=== PATIENT | female | born 1965 | race Caucasian/White ===

== ENCOUNTER → 2023-04-01 | Outpatient (CLI) | payer SELFPAY ==
[2023-04-01 10:33] LABS: BASOPHILS ABSOLUTE AUTO 0.05 K/mm3 (0.00-0.23); BASOPHILS PERCENT AUTO 1 % (0-2); EOSINOPHILS ABSOLUTE AUTO 0.07 K/mm3 (0.00-0.68); EOSINOPHILS PERCENT AUTO 1 % (0-6); Hematocrit 43.7 % (33.0-51.0); Hemoglobin 15.4 g/dL (11.5-16.0); IMMATURE GRAN ABSOLUTE AUTO 0.04 K/mm3 (0.00-0.10); IMMATURE GRAN PERCENT AUTO 1 % (0-1); LYMPHOCYTES ABSOLUTE AUTO 2.23 K/mm3 (0.84-5.20); LYMPHOCYTES PERCENT AUTO 32 % (21-46); MONOCYTES ABSOLUTE AUTO 0.46 K/mm3 (0.16-1.47); MONOCYTES PERCENT AUTO 7 % (4-13); Mean Corpuscular HGB 33.7 pg (26.0-34.0); Mean Corpuscular HGB Conc 35.2 g/dL (31.5-36.5); Mean Corpuscular Volume 96 fL (80-100); Mean Platelet Volume 9.9 fL (9.1-12.4); NEUTROPHILS ABSOLUTE AUTO 4.14 K/mm3 (1.96-9.15); NEUTROPHILS PERCENT AUTO 59 % (41-73); Platelet Count 270 K/mm3 (150-400); RDW Coefficient Variation 13.2 % (11.7-14.2); RDW Standard Deviation 46.8 fL (35.1-46.3); Red Blood Cell Count 4.57 M/mm3 (3.80-5.20); White Blood Cell Count 6.99 K/mm3 (4.00-11.30)
[2023-04-01 11:58] LABS: Thyroid Stimulating Hormone 1.94 uIU/mL (0.360-4.800)
[2023-04-01 11:59] LABS: Albumin, Blood 3.4 g/dL (3.4-5.0); Albumin/Globulin Ratio 0.8 (0.8-1.8); Bilirubin, Total 0.2 mg/dL (0.1-1.0); Bun/Creatinine Ratio 14.9 (12.0-20.0); Calcium, Blood 8.9 mg/dL (8.5-10.1); Creatinine, Blood 0.81 mg/dL (0.40-1.00); Globulin, Blood 4.2 g/dL (2.2-4.0); Potassium, Blood 4.2 mmol/L (3.5-5.5); Total Protein, Blood 7.6 g/dL (6.4-8.2)
== END | disposition home or self-care (01) ==
LOC: LAB 08:40 → LAB SHORT 08:40
PROVIDERS: Physician Assistant
DX: R10.9 Unspecified abdominal pain (principal); R53.83 Other fatigue
CPT/HCPCS: 80053; 83036; 84443; 85025

== ENCOUNTER 2023-10-02 14:17 | Inpatient (IN) | payer OTHER ==
[~2023-10-02] VITALS: Ht 170.2 cm; Wt 118.4 kg
[2023-10-02 14:41] LABS: BASOPHILS ABSOLUTE AUTO 0.04 K/mm3 (0.00-0.23); BASOPHILS PERCENT AUTO 0 % (0-2); EOSINOPHILS PERCENT AUTO 0 % (0-6); Hematocrit 45.7 % (33.0-51.0); IMMATURE GRAN ABSOLUTE AUTO 0.06 K/mm3 (0.00-0.10); IMMATURE GRAN PERCENT AUTO 0 % (0-1); LYMPHOCYTES ABSOLUTE AUTO 2.79 K/mm3 (0.84-5.20); LYMPHOCYTES PERCENT AUTO 18 % (21-46); MONOCYTES ABSOLUTE AUTO 0.92 K/mm3 (0.16-1.47); MONOCYTES PERCENT AUTO 6 % (4-13); Mean Corpuscular HGB 33.1 pg (26.0-34.0); Mean Corpuscular Volume 95 fL (80-100); Mean Platelet Volume 9.5 fL (9.1-12.4); NEUTROPHILS ABSOLUTE AUTO 11.33 K/mm3 (1.96-9.15); NEUTROPHILS PERCENT AUTO 75 % (41-73); Platelet Count 291 K/mm3 (150-400); RDW Coefficient Variation 12.8 % (11.7-14.2); RDW Standard Deviation 44.5 fL (35.1-46.3); Red Blood Cell Count 4.83 M/mm3 (3.80-5.20); White Blood Cell Count 15.14 K/mm3 (4.00-11.30)
[2023-10-02] MEDS ORDERED: OMEP20ER PO (14:50)
[2023-10-02] MEDS ORDERED: LOSARTAN-HCTZ1 EACH PO (14:50)
[2023-10-02 15:05] LABS: Albumin/Globulin Ratio 0.6 (0.8-1.8); Bilirubin, Total 0.8 mg/dL (0.1-1.0); Bun/Creatinine Ratio 14.1 (12.0-20.0); Creatinine, Blood 0.78 mg/dL (0.40-1.00); Globulin, Blood 5.3 g/dL (2.2-4.0); Potassium, Blood 4.1 mmol/L (3.5-5.5); Total Protein, Blood 8.3 g/dL (6.4-8.2)
[2023-10-02 15:12] LABS: Influenza A, PCR NEGATIVE (NEGATIVE); Influenza B, PCR NEGATIVE (NEGATIVE); Resp Syncytial Virus, PCR NEGATIVE (NEGATIVE); SARS-Cov-2 (COVID-19) PCR, MMC NEGATIVE (NEGATIVE)
[2023-10-02 16:56] LABS: Source, Urine Clean Catch
[2023-10-02 17:07] LABS: Bilirubin, Urine Neg (Neg); Blood, Urine 3+ (Neg); Color, Urine Yellow (P-Yellow); Glucose Qualitative, Urine Neg (Neg); Ketones, Urine Neg (Neg); Leukocyte Esterase, Urine Neg (Neg); Nitrite, Urine Neg (Neg); Protein, Urine 2+ (Neg); Urobilinogen, Urine 1+ (Normal)
[2023-10-02 17:22] LABS: Appearance, Urine Hazy (Clear)
[2023-10-02 17:23] LABS: Bacteria Few /hpf; Squamous Epithelial Cells Few /hpf (Few); Transitional Epithelial Cells Rare /hpf (0-Rare); White Blood Cells, Urine 0-2 /hpf (0-5)
[2023-10-02 20:35] VITALS: BP 114/68
--- NOTE | 2023-10-03 02:28 | NUR ---
LATE ENTRY FOR 10/02/23 AT 2012. PT ARRIVED FROM THE ER TO ROOM 215 AT 2013. PT ARRIVED VIA BED AND TRANSFERED TO THE ROOM BED VIA AMBULATION. VITALS SIGNS STABLE. PT REPORTS PAIN 4/10 IN ABDOMEN. PT ORIENTED TO ROOM AND CALL LIGHT IS IN REACH.
--- NOTE | 2023-10-03 02:46 | NUR ---
LATE ENTRY FOR 10/03/23 AT 0035. T/C PLACED TO HOSPITALIST TO CLARIFY AND OBTAIN ORDERS. NEW ORDERS RECEIVED FOR CIWA ASSESSMENT, NS 75, FENTANYL, ZOFRAN. TELEMETRY ORDER VERIFIED TO KEEP AND GENERAL SURGERY CONSULT MENTIONED IN ER H&P NEEDS TO BE CLARIFIED DURING THE DAY NO ORDER WAS PLACED AT THAT TIME.
[2023-10-03 04:45] VITALS: BP 119/72
--- NOTE | 2023-10-03 07:08 | NUR ---
SHIFT SUMMARY NOC. PT A/O X4. PT REPORTS TOLERABLE LOWER ABDOMINAL PAIN. PT HAS HAD INCONTINENT FECAL EPISODES OF GREEN LIQUID STOOL. PT IS NPO STATUS AND NS IS RUNNING ORDERED. PT DENIES N/V. PT RESTED WITH EYES CLOSED AND CALL LIGHT IN REACH.
[2023-10-03 08:27] VITALS: BP 110/66
[2023-10-03 09:49] LABS: BASOPHILS ABSOLUTE AUTO 0.03 K/mm3 (0.00-0.23); BASOPHILS PERCENT AUTO 0 % (0-2); EOSINOPHILS PERCENT AUTO 0 % (0-6); Hematocrit 38.7 % (33.0-51.0); Hemoglobin 13.2 g/dL (11.5-16.0); IMMATURE GRAN ABSOLUTE AUTO 0.05 K/mm3 (0.00-0.10); IMMATURE GRAN PERCENT AUTO 0 % (0-1); LYMPHOCYTES ABSOLUTE AUTO 2.11 K/mm3 (0.84-5.20); LYMPHOCYTES PERCENT AUTO 15 % (21-46); MONOCYTES ABSOLUTE AUTO 0.63 K/mm3 (0.16-1.47); MONOCYTES PERCENT AUTO 5 % (4-13); Mean Corpuscular HGB 33.2 pg (26.0-34.0); Mean Corpuscular HGB Conc 34.1 g/dL (31.5-36.5); Mean Corpuscular Volume 98 fL (80-100); Mean Platelet Volume 9.6 fL (9.1-12.4); NEUTROPHILS ABSOLUTE AUTO 10.97 K/mm3 (1.96-9.15); NEUTROPHILS PERCENT AUTO 80 % (41-73); Platelet Count 231 K/mm3 (150-400); RDW Coefficient Variation 12.9 % (11.7-14.2); Red Blood Cell Count 3.97 M/mm3 (3.80-5.20); White Blood Cell Count 13.79 K/mm3 (4.00-11.30)
[2023-10-03 10:02] LABS: Bun/Creatinine Ratio 14.5 (12.0-20.0); Calcium, Blood 8.3 mg/dL (8.5-10.1); Creatinine, Blood 0.83 mg/dL (0.40-1.00); Potassium, Blood 3.1 mmol/L (3.5-5.5)
--- NOTE | 2023-10-03 16:07 | NUR ---
SHIFT SUMMARY PT A&OX4, VSS/RA, SYDNEE PO FLD, AMB INDEPENDENTLY TO BRP, VOIDING/BMs, DENIES PAIN/NEED FOR MED, ABD MODERATELY DISTENDED/SOFT, CIWAs NEG, TELE DC'D: NSR 80s, IV RHAND 20G, NS @ 75 MLS/HR, ABX Q6H. WILL REPORT TO NEXT RN.
[2023-10-03 16:51] VITALS: BP 108/62
[2023-10-03 18:59] VITALS: BP 124/83
[2023-10-04 02:16] VITALS: BP 109/65
[2023-10-04 04:07] LABS: BASOPHILS ABSOLUTE AUTO 0.02 K/mm3 (0.00-0.23); BASOPHILS PERCENT AUTO 0 % (0-2); EOSINOPHILS ABSOLUTE AUTO 0.02 K/mm3 (0.00-0.68); EOSINOPHILS PERCENT AUTO 0 % (0-6); Hematocrit 36.4 % (33.0-51.0); Hemoglobin 12.5 g/dL (11.5-16.0); IMMATURE GRAN ABSOLUTE AUTO 0.05 K/mm3 (0.00-0.10); IMMATURE GRAN PERCENT AUTO 1 % (0-1); LYMPHOCYTES ABSOLUTE AUTO 1.53 K/mm3 (0.84-5.20); LYMPHOCYTES PERCENT AUTO 15 % (21-46); MONOCYTES ABSOLUTE AUTO 0.62 K/mm3 (0.16-1.47); MONOCYTES PERCENT AUTO 6 % (4-13); Mean Corpuscular HGB 33.6 pg (26.0-34.0); Mean Corpuscular HGB Conc 34.3 g/dL (31.5-36.5); Mean Corpuscular Volume 98 fL (80-100); Mean Platelet Volume 9.7 fL (9.1-12.4); NEUTROPHILS ABSOLUTE AUTO 8.12 K/mm3 (1.96-9.15); NEUTROPHILS PERCENT AUTO 78 % (41-73); Platelet Count 213 K/mm3 (150-400); RDW Coefficient Variation 12.8 % (11.7-14.2); RDW Standard Deviation 45.9 fL (35.1-46.3); Red Blood Cell Count 3.72 M/mm3 (3.80-5.20); White Blood Cell Count 10.36 K/mm3 (4.00-11.30)
[2023-10-04 04:30] LABS: Bun/Creatinine Ratio 14.5 (12.0-20.0); Calcium, Blood 8.3 mg/dL (8.5-10.1); Creatinine, Blood 0.69 mg/dL (0.40-1.00); Potassium, Blood 3.1 mmol/L (3.5-5.5)
--- NOTE | 2023-10-04 06:43 | NUR ---
SHIFT SUMMARY NOC. PT A/O X4. PT TOLERATING PO FLUIDS AND REPORTS DECREASED APPETITE. DENIES N/V AND CONTINUES TO HAVE LOOSE BOWEL MOVEMENTS. PT MEDICATED FOR ABDOMINAL PAIN X1 WITH RELIEF OF SX. PT'S RIGHT HAND IV REMOVED AND SAIL CUTTER PLACED NEW IV IN LEFT HAND. PT RESTED WITH EYES CLOSED AND CALL LIGHT IN REACH.
[2023-10-04 07:11] VITALS: BP 115/69
[2023-10-04] MEDS ORDERED: OMEP20ER PO (12:27)
[2023-10-04] MEDS ORDERED: AMOCLA875 PO (12:29)
--- NOTE | 2023-10-04 13:13 | NUR ---
DISCHARGE SUMMARY PT A&OX4, VSS/RA, SYDNEE PO, VOIDING/BMs, AMB INDEPENDENTLY, PAIN MANAGED, IV DC'D. DC INS PROVIDED. PT REP UNDERSTANDING THOSE INSTRUCTIONS. LEFT FLOOR VIA WC WITH ALL PERSONAL POSSESSIONS INCLUDING DC PACKET AND WORK NOTE.
== END 2023-10-04 13:25 | disposition home or self-care (01) | DRG 872 ==
LOC: ER 14:17 → SURS 14:18
PROVIDERS: Student in an Organized Health Care Education/Training Program; ADMIT Internal Medicine
DX: A41.9 Sepsis, unspecified organism (principal); K57.20 Diverticulitis of large intestine with perforation and abscess without bleeding; E87.1 Hypo-osmolality and hyponatremia; Z68.41 Body mass index [BMI] 40.0-44.9, adult; F10.90 Alcohol use, unspecified, uncomplicated; F17.210 Nicotine dependence, cigarettes, uncomplicated; K21.9 Gastro-esophageal reflux disease without esophagitis; Z71.6 Tobacco abuse counseling; E66.9 Obesity, unspecified; I10 Essential (primary) hypertension; K76.0 Fatty (change of) liver, not elsewhere classified; R73.03 Prediabetes; Z11.52 Encounter for screening for COVID-19; Z86.19 Personal history of other infectious and parasitic diseases; Z79.899 Other long term (current) drug therapy
CPT/HCPCS: 0241U; 36415; 71046; 74177; 80048; 80053; 81001; 81025; 83605; 83690; 85025; 87040; 93005; 93010; 96361; 96365-59; 96366; 96367; 96375; 96376; 99285-25; A9270; G0378; J0696; J1885; J2405; J2543; J3010; J7030; J7050; Q9967

== ENCOUNTER → 2024-05-21 | Outpatient (CLI) | payer OTHER ==
[~2024-05-21] MED LIST: AMOCLA875 PO; DOCU100 PO; HYDROCODONE-AC1 EA10 PO; LOSARTAN-HCTZ1 EAC3 PO; LOSARTAN-HCTZ1 EACH PO; OMEP20ER PO
[2024-05-22 12:21] LABS: Bacterial Vaginosis PCR Negative (NEGATIVE); Candida Group, PCR NOT DETECTED (NOT DETECT); Candida glabrata-krusei, PCR NOT DETECTED (NOT DETECT)
== END | disposition home or self-care (01) ==
LOC: LAB SHORT 18:39 → LAB 18:39
PROVIDERS: Physician Assistant
DX: N76.0 Acute vaginitis (principal)
CPT/HCPCS: 87481; 87661; 87801

== ENCOUNTER 2025-01-06 10:48 | Emergency (ER) | payer OTHER ==
[~2025-01-06] VITALS: Ht 167.6 cm; Wt 133.8 kg
[2025-01-06 12:08] LABS: BASOPHILS ABSOLUTE AUTO 0.03 K/mm3 (0.00-0.23); BASOPHILS PERCENT AUTO 0 % (0-2); EOSINOPHILS ABSOLUTE AUTO 0.03 K/mm3 (0.00-0.68); EOSINOPHILS PERCENT AUTO 0 % (0-6); Hematocrit 45.5 % (33.0-51.0); Hemoglobin 15.5 g/dL (11.5-16.0); IMMATURE GRAN ABSOLUTE AUTO 0.05 K/mm3 (0.00-0.10); IMMATURE GRAN PERCENT AUTO 1 % (0-1); LYMPHOCYTES ABSOLUTE AUTO 1.73 K/mm3 (0.84-5.20); LYMPHOCYTES PERCENT AUTO 16 % (21-46); MONOCYTES PERCENT AUTO 8 % (4-13); Mean Corpuscular HGB 32.1 pg (26.0-34.0); Mean Corpuscular HGB Conc 34.1 g/dL (31.5-36.5); Mean Corpuscular Volume 94 fL (80-100); Mean Platelet Volume 9.6 fL (9.1-12.4); NEUTROPHILS ABSOLUTE AUTO 7.94 K/mm3 (1.96-9.15); NEUTROPHILS PERCENT AUTO 75 % (41-73); Platelet Count 249 K/mm3 (150-400); RDW Coefficient Variation 13.1 % (11.7-14.2); RDW Standard Deviation 44.9 fL (35.1-46.3); Red Blood Cell Count 4.83 M/mm3 (3.80-5.20); White Blood Cell Count 10.58 K/mm3 (4.00-11.30)
[2025-01-06 12:11] LABS: Source, Urine Clean Catch
[2025-01-06 12:13] LABS: Appearance, Urine Hazy (Clear); Bilirubin, Urine Neg (Neg); Blood, Urine 5+ (Neg); Color, Urine Yellow (P-Yellow); Glucose Qualitative, Urine Neg (Neg); Ketones, Urine Neg (Neg); Leukocyte Esterase, Urine 3+ (Neg); Nitrite, Urine Neg (Neg); Protein, Urine 1+ (Neg); Specific Gravity, Urine 1.005 (1.003-1.022); Urobilinogen, Urine NORM (Normal)
[2025-01-06 12:24] LABS: Bacteria Many /hpf; Red Blood Cells, Urine 50-100 /hpf (0-2); Squamous Epithelial Cells Mod /hpf (Few); White Blood Cells, Urine 50-100 /hpf (0-5)
[2025-01-06 12:39] LABS: Albumin, Blood 3.4 g/dL (3.4-5.0); Albumin/Globulin Ratio 0.8 (0.8-1.8); Bilirubin, Total 0.6 mg/dL (0.1-1.0); Bun/Creatinine Ratio 23.6 (12.0-20.0); Calcium, Blood 8.9 mg/dL (8.5-10.1); Creatinine, Blood 0.72 mg/dL (0.40-1.00); Globulin, Blood 4.2 g/dL (2.2-4.0); Potassium, Blood 4.3 mmol/L (3.5-5.5); Total Protein, Blood 7.6 g/dL (6.4-8.2)
[2025-01-06] MEDS ORDERED: Ondansetron HCl 2 MG / ML 2ML Vial IV ONE (16:05)
[2025-01-06] MEDS ORDERED: Ketorolac Tromethamine 15mg Vial IV ONE (16:05)
[2025-01-06 17:35] LABS: Source, Urine Straight Cath
[2025-01-06 17:41] LABS: Appearance, Urine Clear (Clear); Bilirubin, Urine Neg (Neg); Blood, Urine 3+ (Neg); Glucose Qualitative, Urine Neg (Neg); Ketones, Urine Neg (Neg); Leukocyte Esterase, Urine 3+ (Neg); Nitrite, Urine Neg (Neg); Protein, Urine 2+ (Neg); Urobilinogen, Urine NORM (Normal)
[2025-01-06 17:47] LABS: Color, Urine Pale Yellow (P-Yellow)
[2025-01-06 17:51] LABS: Bacteria Few /hpf; Squamous Epithelial Cells Not Seen /hpf (Few)
[2025-01-06 18:05] VITALS: BP 118/65
[2025-01-06] MEDS ORDERED: CEPH500 PO (18:13)
[2025-01-06] MEDS ORDERED: TAMS.4ER PO (18:13)
== END 2025-01-06 18:28 | disposition home or self-care (01) ==
LOC: ER 10:48
PROVIDERS: Student in an Organized Health Care Education/Training Program
DX: N20.0 Calculus of kidney (principal); N39.0 Urinary tract infection, site not specified; F17.200 Nicotine dependence, unspecified, uncomplicated; K21.9 Gastro-esophageal reflux disease without esophagitis; Z79.899 Other long term (current) drug therapy
CPT/HCPCS: 71046; 74177; 80053; 81001; 83880; 85025; 87077; 87086; 87186; 93005; 93010; 96374-59; 96375; 99284-25; J1885; J2405; Q9967

== ENCOUNTER → 2025-01-19 | Outpatient (CLI) | payer OTHER ==
[~2025-01-19] MED LIST changes: +CEPH500 PO; +TAMS.4ER PO
== END | disposition home or self-care (01) ==
LOC: LAB SHORT 10:21 → LAB 10:21
DX: N39.0 Urinary tract infection, site not specified (principal)
CPT/HCPCS: 87086

== ENCOUNTER → 2025-03-01 | Outpatient (CLI) | payer OTHER ==
[2025-03-01 16:24] LABS: Source, Urine Clean Catch
[2025-03-01 18:04] LABS: Bilirubin, Urine Neg (Neg); Blood, Urine 4+ (Neg); Glucose Qualitative, Urine Neg (Neg); Ketones, Urine Neg (Neg); Leukocyte Esterase, Urine 2+ (Neg); Nitrite, Urine Neg (Neg); Protein, Urine 1+ (Neg); Urobilinogen, Urine NORM (Normal)
[2025-03-01 18:21] LABS: Appearance, Urine Hazy (Clear); Bacteria Mod /hpf; Color, Urine Pale Yellow (P-Yellow)
[2025-03-01 18:22] LABS: Transitional Epithelial Cells Rare /hpf (0-Rare)
[2025-03-01 18:25] LABS: Red Blood Cells, Urine 25-50 /hpf (0-2); Squamous Epithelial Cells Mod /hpf (Few)
== END ==
LOC: LAB 16:18 → LAB SHORT 16:18
PROVIDERS: Urology
DX: N13.6 Pyonephrosis (principal)
CPT/HCPCS: 81001; 87086

== ENCOUNTER → 2025-03-28 | Outpatient (CLI) | payer OTHER ==
[2025-03-28 13:02] LABS: Source, Urine Clean Catch
[2025-03-28 15:54] LABS: Bilirubin, Urine Neg (Neg); Color, Urine Yellow (P-Yellow); Glucose Qualitative, Urine Neg (Neg); Ketones, Urine Neg (Neg); Leukocyte Esterase, Urine 2+ (Neg); Protein, Urine 2+ (Neg); Specific Gravity, Urine 1.020 (1.003-1.022); Urobilinogen, Urine NORM (Normal)
[2025-03-28 16:47] LABS: Red Blood Cells, Urine 50-100 /hpf (0-2)
== END | disposition home or self-care (01) ==
LOC: LAB SHORT 13:01 → LAB 13:01 → EDSTATUS 15:38
PROVIDERS: Urology
DX: N39.0 Urinary tract infection, site not specified (principal)
CPT/HCPCS: 81001; 87086

== ENCOUNTER 2025-04-04 08:05 | Day surgery (SDC) | payer OTHER ==
[~2025-04-04] VITALS: Ht 167.6 cm; Wt 132.2 kg
[~2025-04-04 08:05] MED LIST changes: +Dexamethasone Sod Phos 10 MG/ML 1ML VIAL ONE; +FentaNYL Citrate 50 MCG/ML 2 ML Injection ONE; +Ketorolac Tromethamine 30mg Vial ONE; +Midazolam HCl 1MG / ML 2ML Vial ONE; +Ondansetron HCl 2 MG / ML 2ML Vial ONE
[2025-04-04] MEDS ORDERED: CefTRIAXone 1000 MG Vial ONE (08:10)
[2025-04-04] MEDS ORDERED: NS 100 ML IV ONE (08:10)
[2025-04-04] MEDS ORDERED: AMOX-CLAV 500-1 EAC5 PO (08:20)
[2025-04-04] MEDS ORDERED: Voltaren100 GM (08:20)
[2025-04-04] MEDS ORDERED: Cyclobenzaprine5 MG PO (08:21)
[2025-04-04] MEDS ORDERED: BETA.05TCA (08:21)
[2025-04-04] MEDS ORDERED: OXYB5 PO (08:22)
[2025-04-04] MEDS ORDERED: Lidocaine 2% Jelly Uro-Jet ONE (09:30)
[2025-04-04] MEDS ORDERED: Ipratropium/Albuterol SulF 2.5-0.5MG/3 ML Amp ONE (09:32)
--- NOTE | 2025-04-04 10:16 | NUR ---
04/04/25 1016 Juliann Milligan ISOVUE 300 USED FOR PROCEDURE.
[2025-04-04] MEDS ORDERED: HYDROcodone 5-APAP 325 TAB ONE (11:41)
[2025-04-04 11:51] VITALS: BP 112/74
--- NOTE | 2025-04-04 12:47 | NUR ---
04/04/25 1247 JASIEL DEVINE PT VOIDED 300ML OF BLOODY URINE PRIOR TO DC W/O PAIN
== END 2025-04-04 13:08 | disposition home or self-care (01) ==
LOC: ORSCSDS 08:05
PROVIDERS: Urology
PROC: 0TC78ZZ Extirpation of Matter from Left Ureter, Via Natural or Artificial Opening Endoscopic (ICD-10-PCS; principal; 2025-04-04 09:30)
PROC: 0T778DZ Dilation of Left Ureter with Intraluminal Device, Via Natural or Artificial Opening Endoscopic (ICD-10-PCS; principal; 2025-04-04 09:30)
DX: N13.2 Hydronephrosis with renal and ureteral calculous obstruction (principal); N23 Unspecified renal colic; I10 Essential (primary) hypertension; Z87.891 Personal history of nicotine dependence; K76.0 Fatty (change of) liver, not elsewhere classified; F41.9 Anxiety disorder, unspecified; E66.01 Morbid (severe) obesity due to excess calories; Z68.42 Body mass index [BMI] 45.0-49.9, adult; Z79.899 Other long term (current) drug therapy
CPT/HCPCS: A9270; C2617; J0696; J1100; J1885; J2250; J2405; J2704; J3010; J7120

== ENCOUNTER → 2025-05-10 | Outpatient (CLI) | payer OTHER ==
[~2025-05-10] MED LIST changes: +AMOX-CLAV 500-1 EAC5 PO; +BETA.05TCA; +Cyclobenzaprine5 MG PO; -Dexamethasone Sod Phos 10 MG/ML 1ML VIAL ONE; -FentaNYL Citrate 50 MCG/ML 2 ML Injection ONE; -Ketorolac Tromethamine 30mg Vial ONE; -Midazolam HCl 1MG / ML 2ML Vial ONE; +OXYB5 PO; -Ondansetron HCl 2 MG / ML 2ML Vial ONE; +Voltaren100 GM
== END | disposition home or self-care (01) ==
LOC: LAB SHORT 07:50 → LAB 07:50
DX: L30.8 Other specified dermatitis (principal); L28.2 Other prurigo
CPT/HCPCS: 88305; 88312

== ENCOUNTER 2025-09-24 10:26 | Emergency (ER) | payer OTHER ==
[~2025-09-24] VITALS: Ht 170.2 cm; Wt 138.3 kg
[2025-09-24 11:02] LABS: BASOPHILS ABSOLUTE AUTO 0.04 K/mm3 (0.00-0.23); BASOPHILS PERCENT AUTO 1 % (0-2); EOSINOPHILS ABSOLUTE AUTO 0.16 K/mm3 (0.00-0.68); EOSINOPHILS PERCENT AUTO 2 % (0-6); Hematocrit 45.7 % (33.0-51.0); Hemoglobin 15.2 g/dL (11.5-16.0); IMMATURE GRAN ABSOLUTE AUTO 0.03 K/mm3 (0.00-0.10); IMMATURE GRAN PERCENT AUTO 0 % (0-1); LYMPHOCYTES ABSOLUTE AUTO 2.48 K/mm3 (0.84-5.20); LYMPHOCYTES PERCENT AUTO 30 % (21-46); MONOCYTES ABSOLUTE AUTO 0.60 K/mm3 (0.16-1.47); MONOCYTES PERCENT AUTO 7 % (4-13); Mean Corpuscular HGB Conc 33.3 g/dL (31.5-36.5); Mean Corpuscular Volume 94 fL (80-100); NEUTROPHILS ABSOLUTE AUTO 4.90 K/mm3 (1.96-9.15); NEUTROPHILS PERCENT AUTO 60 % (41-73); NRBC ABSOLUTE 0.00 K/mm3 (0.00-0.02); NRBC Auto 0.0 /100 WBC (0.0-0.2); Platelet Count 300 K/mm3 (150-400); RDW Coefficient Variation 13.6 % (11.7-14.2); RDW Standard Deviation 47.2 fL (35.1-46.3)
[2025-09-24 11:21] LABS: Alanine Aminotransfer (ALT/SGP 49.0 U/L (12-78); Albumin, Blood 3.2 g/dL (3.4-5.0); Albumin/Globulin Ratio 0.8 (0.8-1.8); Anion Gap 8.0 mmol/L (3-11); Aspartate Aminotrans (AST/SGOT 33.0 U/L (12-37); Bilirubin, Total 0.4 mg/dL (0.1-1.0); Blood Urea Nitrogen 15.0 mg/dL (8-24); CO2, Blood 26.0 mmol/L (21-32); Calcium, Blood 8.8 mg/dL (8.5-10.1); Chloride, Blood 107.0 mmol/L (98-108); Creatinine, Blood 0.66 mg/dL (0.40-1.00); Globulin, Blood 4.0 g/dL (2.2-4.0); Glucose, Blood 113.0 mg/dL (70-99); Potassium, Blood 4.2 mmol/L (3.5-5.5); Sodium, Blood 137.0 mmol/L (136-145); Total Protein, Blood 7.2 g/dL (6.4-8.2)
[2025-09-24 12:39] LABS: Influenza A, PCR NEGATIVE (NEGATIVE); Influenza B, PCR NEGATIVE (NEGATIVE); Resp Syncytial Virus, PCR NEGATIVE (NEGATIVE); SARS-Cov-2 (COVID-19) PCR, MMC NEGATIVE (NEGATIVE)
[2025-09-24 14:00] VITALS: BP 142/80
[2025-09-24] MEDS ORDERED: Ketorolac Tromethamine 15mg Vial IV ONE (14:05)
== END 2025-09-24 14:30 | disposition home or self-care (01) ==
LOC: ER 10:26
PROVIDERS: Emergency Medicine
DX: J20.9 Acute bronchitis, unspecified (principal); I10 Essential (primary) hypertension; R73.03 Prediabetes; K21.9 Gastro-esophageal reflux disease without esophagitis; E66.9 Obesity, unspecified; Z87.891 Personal history of nicotine dependence
CPT/HCPCS: 71046; 80053; 83880; 84484; 85025; 87637; 96374; 99285-25; J1885